=== PATIENT | female | born 1995 | race Caucasian/White ===

== ENCOUNTER 2019-09-20 13:39 | Emergency (ER) | payer BC, SELFPAY ==
--- NOTE | ~2019-09-20 | XR_ITS ---
EXAMINATION: XR nasal bones min 3V DATE: 09/20/2019 14:09 INDICATION: Nose injury. TECHNIQUE: 3 views of the nasal bones were obtained. COMPARISON: None. FINDINGS: Bone alignment is normal. No fracture. IMPRESSION: 1. No fracture. Reviewed, dictated and finalized at location A. IMPRESSION: 1. No fracture.
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
[2019-09-20 13:55] VITALS: BP 120/72; PULSE 74; RESP 16; TEMP 36.4; O2SAT 100
== END 2019-09-20 14:29 | disposition home or self-care (01) ==
PROVIDERS: Emergency Provider Nurse Practitioner Family
DX: S05.12XA Contusion of eyeball and orbital tissues, left eye, initial encounter (principal); S05.11XA Contusion of eyeball and orbital tissues, right eye, initial encounter; W01.0XXA Fall on same level from slipping, tripping and stumbling without subsequent striking against object, initial encounter
CPT/HCPCS: 70160; 99213; G0463

== ENCOUNTER 2020-05-29 06:54 | Outpatient (NON) | payer BC, SELFPAY ==
[2020-05-30 01:18] LABS: SARS-CoV-2 RNA PCR Negative
== END 2020-05-29 06:55 ==
PROVIDERS: PCP Nurse Practitioner Family; Visit Provider Nurse Practitioner Family
DX: Z20.828 Contact with and (suspected) exposure to other viral communicable diseases (principal)
CPT/HCPCS: 87635; C9803; U0003